=== PATIENT | male | born 1945 | race Caucasian/White ===

== ENCOUNTER 2020-11-11 17:21 | Observation (INO) ==
[2020-11-11] MEDS ORDERED: Bupivacaine 0.5%-Epi 1:200,000 50 ML VIAL ONE (20:40)
[2020-11-11] MEDS ORDERED: *HR* Propofol 200 MG/20 ML VIAL IVP ONE (21:08)
[2020-11-11] MEDS ORDERED: Dexamethasone 4 MG/ML VIAL ONE (21:09)
[2020-11-11] MEDS ORDERED: *HR* Rocuronium Bromide 50 MG/5 ML VIAL ONE (21:09)
[2020-11-11] MEDS ORDERED: *HR* FentaNYL (PF) 100 MCG/2 ML VIAL ONE (21:09)
[2020-11-11] MEDS ORDERED: Lidocaine -MPF 2% 2 ML VIAL ONE (21:09)
[2020-11-11] MEDS ORDERED: Ondansetron 4 MG/2 ML VIAL ONE (21:09)
[2020-11-11] MEDS ORDERED: Acetaminophen IV 1,000 MG/100 ML BAG IVPB ONE (21:48)
[2020-11-11] MEDS ORDERED: *HR* PHENYLEPHRINE 1,000 MCG/10 ML SYRINGE IVP ONE (22:04)
[2020-11-11] MEDS ORDERED: Sugammadex Sodium 200 MG/2 ML VIAL IV ONE (22:30)
[2020-11-11] MEDS ORDERED: Ondansetron 4 MG/2 ML VIAL IVP PRN ×2 (22:37→23:52)
[2020-11-11] MEDS ORDERED: *HR* HYDROmorphone (PF) 1 MG/ML SYRINGE IVP PRN (22:37)
[2020-11-11] MEDS ORDERED: *HR* OxyCODONE/APAP 5/325 TABLET PO PRN (22:48)
[2020-11-11] MEDS ORDERED: Ipratropium/Albuterol Neb 3 ML IH ONE (23:25)
[2020-11-11] MEDS ORDERED: Ipratropium/Albuterol Neb 3 ML ONE (23:26)
[2020-11-11] MEDS ORDERED: Naloxone 0.4 MG/ML INJ IVP PRN (23:52)
[2020-11-11] MEDS ORDERED: Melatonin 3 MG TABLET PO PRN (23:52)
[2020-11-12] MEDS ORDERED: Ondansetron 4 MG/2 ML VIAL IVP PRN ×3 (01:00→08:00)
[2020-11-12] MEDS ORDERED: Melatonin 3 MG TABLET PO PRN (01:00)
[2020-11-12] MEDS ORDERED: *HR* HYDROmorphone (PF) 1 MG/ML SYRINGE IVP PRN (01:00)
[2020-11-12] MEDS ORDERED: Naloxone 0.4 MG/ML INJ IVP PRN (01:00)
[2020-11-12] MEDS ORDERED: *HR* OxyCODONE/APAP 5/325 TABLET PO PRN (01:00)
[2020-11-12] MEDS ORDERED: Nitroglycerin 0.4 MG TAB.SUBL SL PRN (01:00)
[2020-11-12 06:09] LABS: Basophils % 0.1 %; Hematocrit 37.6 % (37.5-50.1); Hemoglobin 12.5 g/dL (12.9-16.9); Immature Granulocytes % 0.3 % (0-4); Lymphocytes # 0.6 K/mcL (0.6-4.6); Lymphocytes % 5.8 %; Mean Corpuscular HGB Conc 33.2 g/dL (31.6-35.5); Mean Corpuscular Hemoglobin 30.8 pg (28.0-33.3); Mean Corpuscular Volume 92.6 fL (83.0-100.0); Monocytes # 0.4 K/mcL (0.0-1.3); Monocytes % 3.7 %; Neutrophils # 9.2 K/mcL (1.6-8.9); Platelet Count 220 K/mcL (140-400); Red Blood Count 4.06 M/mcL (4.19-5.50); Red Cell Distribution Width 13.4 % (11.5-14.5); Segmented Neutrophils % 90.1 %; White Blood Count 10.3 K/mcL (4.3-11.1)
[2020-11-12 06:27] LABS: Alanine Aminotransferase 7 Units/L (7-52); Albumin 3.5 g/dL (3.5-5.7); Albumin/Globulin Ratio 1.3 (1.1-2.2); Alkaline Phosphatase 65 Units/L (34-104); Aspartate Amino Transferase 16 Units/L (13-39); BUN/Creatinine Ratio 22 (6-26); Bilirubin,Total 0.8 mg/dL (0.3-1.0); Blood Urea Nitrogen 26 mg/dL (8-23); Carbon Dioxide 30 mEq/L (23-29); Chloride 103 mEq/L (98-107); Globulin 2.6 g/dL (2.4-3.5); Glucose 131 mg/dL (70-105); Magnesium 1.8 mg/dL (1.6-2.6); Osmolality,Calculated 295 (280-300); Potassium 4.6 mEq/L (3.5-5.1); Sodium 139 mEq/L (136-145); Total Protein 6.1 g/dL (6.4-8.9); eGFR For African Americans > 60 (> 60); eGFR For Non-African Americans > 60 (> 60)
[2020-11-12] MEDS ORDERED: Metoprolol XL (24 HR) Succ 25 MG TAB.ER.24H PO SCH (09:00)
[2020-11-12] MEDS ORDERED: Furosemide 20 MG TABLET PO SCH (09:00)
[2020-11-12] MEDS ORDERED: lisinopriL 5 MG TABLET PO SCH (09:00)
[2020-11-12 11:09] VITALS: BP 101/62
[2020-11-13] MEDS ORDERED: Aspirin Enteric Coated 81 MG Tablet PO SCH (09:00)
== END 2020-11-12 15:20 | disposition home or self-care (01) ==
LOC: 3ANU → SUATTDRO 20:09
PROVIDERS: ADMIT Family Medicine; ATTEND Internal Medicine